=== PATIENT | male | born 1960 | race Hispanic/Latino ===

== ENCOUNTER 2018-12-09 14:36 | Emergency (ER) | payer OTHER ==
[2018-12-09 14:44] VITALS: BP 112/73; PULSE 77; RESP 20; TEMP 97.5; O2SAT 100
--- NOTE | 2018-12-09 15:04 | C.PDOC ---
Time Seen by Provider: 12/09/18 14:49 Chief Complaint (Nursing): Cough, Cold, Congestion History Per: Patient, Family Onset/Duration Of Symptoms: Days (2) Current Symptoms Are (Timing): Still Present Associated Symptoms: Cough, Nasal Congestion Severity: Moderate Additional History Per: Prior Records Past Medical History Reviewed: Historical Data, Nursing Documentation, Vital Signs Vital Signs: Last Vital Signs Temp 97.5 F L 12/09/18 14:40 Pulse 77 12/09/18 14:40 Resp 20 12/09/18 14:40 BP 112/73 12/09/18 14:40 Pulse Ox 100 12/09/18 14:40 - Medical History Other PMH: Down Syndrome Family History: States: Unknown Family Hx - Social History Hx Tobacco Use: No Hx Alcohol Use: No Hx Substance Use: No - Immunization History Hx Tetanus Toxoid Vaccination: No Hx Influenza Vaccination: Yes (10/2018) Hx Pneumococcal Vaccination: No Review Of Systems Except As Marked, All Systems Reviewed And Found Negative. Constitutional: Negative for: Fever, Weakness ENT: Positive for: Nose Congestion Cardiovascular: Negative for: Chest Pain Respiratory: Positive for: Cough. Negative for: Shortness of Breath Gastrointestinal: Negative for: Vomiting, Abdominal Pain, Diarrhea Genitourinary: Negative for: Dysuria Musculoskeletal: Negative for: Neck Pain Skin: Negative for: Rash Neurological: Negative for: Weakness, Seizures Physical Exam - Physical Exam Appears: Non-toxic, No Acute Distress Skin: Normal Color, Warm, Dry Head: Atraumatic Oral Mucosa: Moist Throat: Normal Neck: Normal ROM, Supple Cardiovascular: Rhythm Regular Respiratory: Normal Breath Sounds, No Accessory Muscle Use Extremity: Normal ROM Neurological/Psych: Normal Motor ED Course And Treatment O2 Sat by Pulse Oximetry: 100 Pulse Ox Interpretation: Normal Disposition Counseled Patient/Family Regarding: Diagnosis, Need For Followup, Rx Given - Disposition Referrals: To Multani MD [Staff Provider] - Disposition: HOME/ ROUTINE Disposition Time: 15:03 Condition: STABLE Additional Instructions: Follow up with your doctor. Return to the ER if you develop fever, shortness of breath, chest pain, worsening of symptoms or if you have any other concerns. Prescriptions: Benzonatate 200 mg PO TID PRN #15 capsule PRN Reason: Cough Instructions: Upper Respiratory Infection (ED) - Clinical Impression Clinical Impression: Upper respiratory infection
== END 2018-12-09 15:06 | disposition home or self-care (01) ==
LOC: C.ER 14:36
DX: J06.9 Acute upper respiratory infection, unspecified (principal)